=== PATIENT | male | born 1975 | race Two or more races ===

== ENCOUNTER 2024-04-15 05:47 | Observation (INO) | payer BC, SELFPAY ==
[2024-04-15] VITALS (9 sets, daily range): BP systolic 109–145; BP diastolic 64–103; BMI 25.7; BMI 24.7
--- NOTE | 2024-04-15 01:47 | ED.GENMED ---
History of Present Illness
General
Chief Complaint: Abdominal Pain
Source: patient
Exam Limitations: none
Time Seen by Provider: 04/15/24 01:39
History of Present Illness
History of Present Illness:
This is a 48 year old male that comes in with c/o upper abd pain. States that after dinner he started with upper abd pain. States that it also seems to be moving down into the abd a little. States that the pain has been constant. States that he
took his Pantoprazole and this normally helps but this time it did not. Denies any fever, chills, chest pain, SOB, diarrhea, headache, dizziness, urinary burning.
Past History
Past History
ED Past Medical History: GERD and Other (Ulcers)
ED Past Surgical History: None
Social History
Tobacco: Former smoker
Alcohol: Occasional
Personal:
Living: with family
Review of Systems
Review of Systems
All Other Systems: ROS reviewed and negative except as documented in HPI and ROS
Constitutional: Reports no symptoms; Denies fever or chills
EENT: Reports no symptoms
Respiratory: Reports no symptoms; Denies cough or trouble breathing
Cardiac: Reports no symptoms; Denies chest pain
ABD/GI: Reports abdominal pain (Upper abd), nausea and vomiting; Denies diarrhea
: Reports no symptoms; Denies dysuria, frequency or urgency
Musculoskeletal: Reports no symptoms
Skin: Reports no symptoms
Neurological: Reports no symptoms; Denies dizzy or headache
Psychiatric: Reports no symptoms
Phy Exam
General Physical Exam
General Presentation: moderate distress
General age: appears stated age
General Skin: warm and dry
General Habitus: normal
General Mental: alert
General Hydration: appears well hydrated
ENT Exam
ENT Exam: TM's normal, pharynx normal and neck supple
Eye Exam
Eye Exam: EOMI
Cardiovascular Exam
Cardiovascular Exam: regular rate/rhythm, no edema, no murmur and normal peripheral pulses
Pulmonary Exam
Pulmonary Exam: lungs clear, no respiratory distress, no rales, chest non tender, no crackles, no rhonchi, no wheezing and no cough
Gastrointestinal Exam
Gastrointestinal Exam: normal bowel sounds, soft, no organomegaly, no pulsatile mass, non distended and tender (Epigastric and RUQ tenderness with palpation)
Musculoskeletal Exam
Musculoskeletal Exam: full ROM and no edema
Skin Exam
Skin Exam: normal color, warm/dry, no rash and no petechia
Psychiatric Exam
Psychiatric Exam: normal mood/affect
Course
Orders/Labs/Results
Orders:
Orders
04/15/24 01:13
EKG [Electrocardiogram (*1)] Urgent
Reason for Study: Abdominal Pain
EKG- Treatment ONCE
04/15/24 01:46
0.9% Sodium Chloride 1000 ml [Nss] 1,000 ml IV BOLUS
HYDROmorphone [Dilaudid] 1 mg IV NOW STA
Ondansetron Injectable [Zofran] 4 mg IV NOW STA
US Abdomen Complete/Upper Urgent
Comment:
Reason For Exam: Epigastric and right upper abd pain
04/15/24 01:47
Pantoprazole [Protonix IV] 40 mg IV NOW STA
04/15/24 01:51
Complete Blood Count/With Diff Urgent
Comprehensive Metabolic Panel Urgent
Lipase Urgent
Abnormal Lab Results
04/15/24
01:51
MCV 75.3 L fL
(80.0-94.0)
MCH 26.0 L pg
(27.0-31.0)
MPV 11.4 H fL
(7.4-10.4)
Absolute Monos (auto) 0.7 H 10^3/uL
(0.1-0.6)
Chloride 109 H mmol/L
(98-107)
Carbon Dioxide 20 L mmol/L
(22-30)
Glucose 151 H mg/dl
(70-99)
ALT 67 H U/L
(0-50)
04/15/24 01:51
04/15/24 01:51
Anemia, Chloride very slightly elevated. Carbon dioxide low. Glucose nonfasting. ALT mildly elevated. Lipase normal at 117
Vital Signs
Initial and Last Documented VS:
Initial Vital Signs
Temp Pulse Resp BP Pulse Ox
98.3 F 79 16 145/103 100
04/15/24 01:10 04/15/24 01:10 04/15/24 01:10 04/15/24 01:10 04/15/24 01:10
Last Documented Vital Signs
Temp Pulse Resp BP Pulse Ox
98.3 F 72 14 115/69 99
04/15/24 01:10 04/15/24 04:02 04/15/24 04:02 04/15/24 03:00 04/15/24 04:02
MDM/Problems Addressed
Differential Diagnosis Includes:
Pancreatitis, Gallbladder disease, Gastritis
MDM/Problems Addressed:
This is a 48 year old male that comes in with c/o upper abd pain. States that this started after dinner and has continued. States that he took his Pantoprazole but this did not help.
Will get labs, US, medicate for pain and IV fluids
Back into see patient. Patient has been feeling much better after the Dilaudid. Explained that his US shows that there is a gallstone stuck in the neck of the gallbladder. there is thickening and pericholecystic free fluid. Will admit and given IV
antibiotics. Hospitalist notified.
Chronic conditions affecting care:
NA
Acute Exacerbation and/or Progression of Chronic Illness:
GERD
*Radiology
Radiology exam reviewed: radiology read reviewed (US- night hawk- Gallstone lodged in the gallbladder neck. Thickening and pericholecystic free fluid. These findings are suspicious for cholecystitis. however, negative Day's sign makes the
findings equivocal. Consisder HIDA scan of surgical consult. )
*Pulse Oximetry
Patient hypoxic: no
*EKG
Interpreted by ED Provider?: Yes
Heart Rate: 79
Rate: normal
Rhythm: sinus
[place]: normal axis
Interval: normal interval
QRS Pattern: normal QRS
Ischemia: no ischemia
*Processing Tech Interpretation
Rate: normal
Heart Rate: 76
Rhythm: sinus
*Critical Care Note
Total Time (30-74mins, 75-104mins- exclusive of procedures): Not Applicable
ED Attending Note
-
Portions of this chart may have been created with voice recognition software.� Occasional wrong word or��sound alike� substitutions may have occurred due to the inherent limitations of voice recognition software.
Discharge Plan
Departure
Patient Disposition: Admit
Date of Disposition: 04/15/24
Time of Disposition: 04:47
Admit to: Med/Surg
Presentation/result/management discussed w/ accepting MD/DO: Hospitalist
Patient with high blood pressure during this ER visit?: No
Condition: Good
Covid-19: Not Applicable
Discharge Problem:
Cholecystitis, acute with cholelithiasis
Referrals:
UNKNOWN - PT DOES,NOT KNOW [Family Provider] -
Interventions
Interventions:
*Risk Screen - Suicide Last Done: 04/15/24 01:10
*General Assessment Last Done: 04/15/24 01:10
*Neglect/Abuse Screening Last Done: 04/15/24 01:10
HV-Nxbdzz-Joxcyvrfqq Assessment Last Done: 04/15/24 01:45
Discharge Date and Time
Print Language: AZERI
[2024-04-15 01:59] LABS: % Basophils 0.8 % (0-2); % Eosinophils 3.5 % (0-6); % Immature Granulocytes 0.3 % (0-0.5); % Monocytes 6.8 % (1.7-9.3); % Neutrophils 57.6 % (42.2-75.2); Absolute Basophils 0.1 10^3/uL (0-0.2); Absolute Eosinophils 0.4 10^3/uL (0-0.7); Absolute Lymphocytes 3.1 10^3/uL (1.2-3.4); Absolute Monocytes 0.7 10^3/uL (0.1-0.6); Absolute Neutrophils 5.7 10^3/uL (1.4-6.5); Hematocrit 42.9 % (39.0-52.0); Hemoglobin 14.8 g/dL (13.0-18.0); Mean Corp Hgb Conc. 34.5 g/dL (33.0-37.0); Mean Corpuscular Volume 75.3 fL (80.0-94.0); Mean Platelet Volume 11.4 fL (7.4-10.4); Nucleated Red Blood Cells % 0 % (-); Platelet Count 273 10^3/uL (130-400); Red Cell Dist. Width 14.5 % (11.5-14.5); White Blood Cell Count 9.9 10^3/uL (4.8-10.8)
[2024-04-15] MEDS: ZOFRAN 4 MG IV (01:59)
[2024-04-15] MEDS: DILAUDID 1 MG IV (02:00)
[2024-04-15] MEDS: PROTONIX IV 40 MG IV ×2 (02:01→10:06)
[2024-04-15] MEDS: NSS 1000 IV ×2 (02:05→10:05)
[2024-04-15 02:17] LABS: ALT (SGPT) 67 U/L (0-50); AST (SGOT) 35 U/L (17-59); Albumin 4.8 g/dl (3.5-5.0); Alkaline Phosphatase 74 U/L (38-126); Blood Urea Nitrogen 20 mg/dl (9-20); Calcium 9.5 mg/dl (8.4-10.2); Carbon Dioxide 20 mmol/L (22-30); Chloride 109 mmol/L (98-107); Estimated Creatinine Clearance 93 ml/min; Glucose 151 mg/dl (70-99); Lipase 117 U/L (23-300); Potassium 3.9 mmol/L (3.5-5.1); Sodium 141 mmol/L (135-145); Total Bilirubin 0.6 mg/dl (0.2-1.3); Total Protein 7.4 g/dl (6.3-8.2); eGFR > 60.00
--- NOTE | 2024-04-15 04:54 | HPS.HSE ---
Family Physician
-
Family Physician: NOT KNOW UNKNOWN - PT DOES
Chief Complaint
-
abdominal oain
History of Present Illness
48M HX GERD seen at ER for evaluation of abdominal pain:
Acute upper abdominal pain
- pain free at the tome of my exam
- onset after dinner last night
- Initially upper abdomen then radiation down
- No relieved by PPI
- Denies any fever, chills
Medical History
Past Medical History
Past Medical History: Reports GERD
Past Surgical History: Reports None
Social History
Tobacco: Former Smoker
Alcohol: Occasional
Living: With Family
Family History
Family History: Not pertinent
Allergies / Home Medications
Allergies reflects when Allergies were last updated in [facility].
Home Medications with original date entered in [facility]
Allergy/Medication List:
Allergies
Allergy/AdvReac Type Severity Reaction Status Date / Time
No Known Allergies Allergy Unverified 04/15/24 01:09
If medication reconciliation has not been performed, why?: Medication List N/A
Review of Systems
-
Constitutional: Reports No Symptoms
EENT: Reports No Symptoms
Respiratory: Reports No Symptoms
Cardiac: Reports No Symptoms
Abdomen/GI: Reports Abdominal Pain
: Reports No Symptoms
Musculoskeletal: Reports No Symptoms
Skin: Reports No Symptoms
Neurological: Reports No Symptoms
Endocrine: Reports No Symptoms
Hematologic/Lymphatic: Reports No Symptoms
Psych: Reports No Symptoms
Physical Exam
Vital Signs
Vital Signs
Temp Pulse Resp BP Pulse Ox
98.3 F 80 14 120/72 100
04/15/24 01:10 04/15/24 04:41 04/15/24 04:02 04/15/24 04:41 04/15/24 04:41
Physical Exam
General: Well Developed, Well Nourished and No Apparent Distress
HEENT: NormoCephalic, Moist mucous membranes and Atraumatic
Respiratory: Clear
Cardiac: S1/S2 and Regular Rhythm; No Murmur or Rub
GI: Soft, Non Tender, Non Distended and Normal Bowel Sounds; No Organomegaly
Rectal: Deferred by Provider
Musculoskeletal: No Clubbing, No Cyanosis and No Edema
Skin: No Rash
Neuro: AO x 3 and Nonfocal/grossly intact
Psych: Calm
Laboratory Results
-
04/15/24 01:51
04/15/24 01:51
Laboratory Results
Total Bilirubin 0.6 mg/dl (0.2-1.3) 04/15/24 01:51
AST 35 U/L (17-59) 04/15/24 01:51
ALT 67 U/L (0-50) H 04/15/24 01:51
Alkaline Phosphatase 74 U/L (38-126) 04/15/24 01:51
Lipase 117 U/L (23-300) 04/15/24 01:51
Data Reviewed
-
Ultrasound: Report Reviewed by me
Lab Data: Labs Reviewed by me
Impression/Plan
-
Reviewed VS: afebrile and unremarkable
Data
nl WCC
Cl 109
CO2 20
nl Cr
BG 151
nl TB
ALT 67
nl Lipase
US Abdomen
GS lodged in the gallbladder neck
GBWT and pericholecystic free fluid
Suspicious for cholecystitis
NEG Day
NO prior hospitalist admission:
ASSESSMENT & PLAN
Acute upper abdominal pain suspect Biliary colic
GS lodged in the NoGB
GBWT and pericholecystic free fluid suspicious for cholecystitis
NEG Day
Afebrile, nl WCC, nl TB
- NPO and IVF
- PRN Analgesia
- Trend LFTs
- Observing off ABx
- GS consult - HIDA scan ?
HX GERD
DVT Px: SCD
Code: Full
Obs MS
[2024-04-15] MEDS: ZOSYN 50 IV (05:00)
--- NOTE | 2024-04-15 08:30 | PTCARENOTE ---
Pt arrived to rm 401-2 at this time from the ED. Pt AAOx3, denying any pain or N/V. Med/Surg admit. See shift assessment for further detail. Oriented pt and his to , reporting concerns, plan of care, medications etc- verbalized understanding.
Call brady within reach.
[2024-04-15 09:33] LABS: INR 1.06; PT 13.6 Sec (11.4-14.6)
[2024-04-15 09:34] LABS: APTT 28.2 Sec (23.4-35.0)
--- NOTE | 2024-04-15 09:51 | CON.GS ---
Medical History
-
Chief Complaint: abdominal pain
History of Present Illness:
Mr. Pena is a 48 yo male with a history of GERD/PUD who presents with epigastric abdominal pain which began shortly after eating dinner late last night. He has had pain like this in the past which has been relieved with a PPI. He took this
medication without much benefit. He developed nausea and vomiting as well with continued pain that night and presented to the ED for evaluation. He is currently pain free and without nausea. He feels a mild soreness to the epigastrium but is
non-tender with exam.
Past Medical History
Past Medical History: GERD (PUD)
Social History
Tobacco: Former Smoker
Alcohol: Occasional
Family History
Family History: Reviewed & Not Pertinent
Allergies / Home Medications
Allergy/AdvReac Type Severity Reaction Status Date / Time
No Known Allergies Allergy Unverified 04/15/24 01:09
Review of Systems
-
A 10 point review of systems was completed, and was negative except as per HPI.
Physical Exam
Vital Signs
Temp Pulse Resp BP Pulse Ox
98.0 F 76 18 115/80 92
04/15/24 08:32 04/15/24 08:32 04/15/24 08:32 04/15/24 08:32 04/15/24 08:32
04/14/24 04/15/24 04/16/24
06:59 06:59 06:59
Actual Weight 72.3 kg 69.456 kg
Body Mass Index (BMI) 24.7
Lab Results
04/15/24 01:51
04/15/24 01:51
WBC 9.9 10^3/uL (4.8-10.8) 04/15/24 01:51
Hgb 14.8 g/dL (13.0-18.0) 04/15/24 01:51
Hct 42.9 % (39.0-52.0) 04/15/24 01:51
Plt Count 273 10^3/uL (130-400) 04/15/24 01:51
Abs Immat Gran (auto) 0.0 10^3/uL (0-0.05) 04/15/24 01:51
Neutrophils % 57.6 % (42.2-75.2) 04/15/24 01:51
Physical Exam
General: Well Developed, Well Nourished, No Apparent Distress and Comfortable
HEENT: Normocephalic and Moist Mucous Membranes
Respiratory: Non Labored Respirations
GI: Soft, Non Tender and Non Distended
Skin: Warm and Dry
Neuro: Awake, Alert and AO x 3
Psych: Calm
Data Reviewed
-
Ultrasound: Image Personally Visualized and interpreted, Report Reviewed by me, Discussed with Physician and Discussed with Patient
Old Records: Reviewed
Assessment / Plan
-
48 yo male with h/o GERD/PUD who presented with acute onset of epigastric pain last night after dinner with n/v several hours later as well. PPI ineffective for pain relief at home causing him to present. Pain resolved since early this am. Nontender
on exam. US with cholelithiasis, stone in region of gallbladder neck (3-4mm) with mild thickening/surrounding fluid. Day's neg on exam and on US. No leukocytosis. LFT's wnl. AFVSS. Currently on ABX. Suspect biliary colic vs less likely
cholecystitis.
Patient will need eventual cholecystectomy. Timing TBD. Given absence of pain, normal labs and vitals, may be able to plan this on an elective and scheduled basis which would be ideal.
Plan:
Will do PO challenge this am with low fat diet. If pain recurs, will plan cholecystectomy this admission. If he does well with PO challenge, will d/c to home for OP follow up.
Continue abx
Analgesics if needed
SCD's for vte ppx
D/W hospitalist team. OK to place patient on surgery service
[2024-04-15] MEDS: NSS (PRESERVATIVE FREE) 10 ML IV (10:06)
[2024-04-15] MEDS: FLUSH (NSS) 1 FLUSH IV (10:08)
[2024-04-15] MEDS: CEFOTAN 1000 MG IV (10:10)
[2024-04-15] MEDS: STERILE WATER FOR INJECTION 10 ML IV (10:10)
--- NOTE | 2024-04-15 12:15 | PTCARENOTE ---
Pt tolerated low fat diet without any abdominal pain, no N/V. Made Claudia Chaney from surgery aware.
--- NOTE | 2024-04-15 14:10 | CM ---
Vamshi was admitted overnight with abdominal pain. Plan is for discharge today with plan for outpatient cholecystectomy.
No discharge planning needs identified.
Plan: Discharge to home with outpatient follow up.
--- NOTE | 2024-04-15 15:49 | W.DCSUMMARY ---
Discharge Summary
Discharge Data
Date of Admission: 04/15/24
Date of Discharge: 04/15/24
-
Pending Results: No
Hospital Course
48 yo male admitted with biliary colic and possible cholecystitis on US imaging although without leukocytosis or fevers. Pain resolved shortly after presentation without recurrence. Non-tender on exam and without recurrence of pain with PO
challenge. Discharged to home on short course of antibiotics with plan for outpatient surgery for cholecystectomy and surgical follow up.
Discharge Plan
-
Patient Disposition: Home (Routine Discharge)
Discharge Diagnosis/Procedures: Biliary colic
Condition: Good
Diet: Low Fat
Activity: No restrictions
Activity Restrictions/Additional Instructions:
Please follow up with general surgeon to schedule cholecystectomy; number listed below. If you have increased pain or worsening symptoms, please return for evaluation.
Referrals:
Demario Lake MD [Active] - in less than 1 week
Prescriptions:
New
amoxicillin-pot clavulanate 875-125 mg tablet
1 tab PO Q12 Qty: 10 0RF
Discharge Orders:
Discharge Patient (As Directed); Ordered 04/15/24
Ordered By: Claudia Chaney
Discharge Date and Time
Print Language: JAPANESE
== END 2024-04-15 15:59 | disposition home or self-care (01) ==
LOC: 4 EAST ACU 05:47
PROVIDERS: Clinical Nurse Specialist Family Health; Registered Nurse; ADMITTING PHYSICIAN Internal Medicine; ATTENDING PHYSICIAN Surgery; EMERGENCY PHYSICIAN Emergency Medicine
DX: K80.00 Calculus of gallbladder with acute cholecystitis without obstruction (principal); R10.9 Unspecified abdominal pain; K21.9 Gastro-esophageal reflux disease without esophagitis; D64.9 Anemia, unspecified; R11.2 Nausea with vomiting, unspecified; K76.0 Fatty (change of) liver, not elsewhere classified; Z87.891 Personal history of nicotine dependence; Z87.11 Personal history of peptic ulcer disease
CPT/HCPCS: 76700; 80053; 83690; 85025; 85610; 85730; 86850; 86900; 86901; 87040; 93005; 96361; 96365; 96375; 99285; G0378

== ENCOUNTER 2024-05-30 06:21 | Day surgery (SDC) | payer BC, SELFPAY ==
[2024-05-30] VITALS (16 sets, daily range): BP systolic 92–131; BP diastolic 62–92
[2024-05-30] MEDS: NORMOSOL-R 1000 IV (09:57)
[2024-05-30] MEDS: TYLENOL 1000 MG PO (09:57)
--- NOTE | 2024-05-30 10:00 | W.SUR.PREOP ---
Pre-Operative Surgical Note
-
I have examined this patient prior to the performance of the scheduled procedure.
The patient's condition is unchanged from the time of the current History and
Physical and the patient is able to undergo the scheduled procedure.
[2024-05-30] MEDS: DILAUDID 0.5 MG IV (12:21)
--- NOTE | 2024-05-30 12:25 | W.IMMPOSTOP ---
Surgical Immed Post Op Note
-
Primary Surgeon: Demario Lake MD
Assisting Surgeon: None
Pre-op Diagnosis: Biliary colic
Post-op Diagnosis: Chronic cholecystitis, fatty liver disease
Procedure Performed:
1. Laparoscopic cholecystectomy with cholangiogram
2. Liver biopsy
Anesthesia Type: General
Specimen / Cultures:
1. Gallbladder and contents
2. Liver biopsy
Estimated Blood Loss: 7 cc
Complications: None
Operative Findings: Chronically inflamed gallbladder with adhesions over the anterior surface of the gallbladder. Some adhesions to the anterior right upper abdominal wall which were lysed sharply. Critical view of safety obtained prior to
cholangiogram which demonstrated normal biliary anatomy and no distal filling defects. Duct ligated with 0 PDS Endoloop.
--- NOTE | 2024-05-30 12:26 | OR.RPT ---
Operative Report
Operative Report
Patient Name: Vamshi Pena
: 1975
Date of Operation: 05/30/2024
Preoperative Diagnosis: Symptomatic Cholelithiasis
Postoperative Diagnosis: Chronic cholecystitis, fatty liver disease
Procedure(s):
1. Laparoscopic Cholecystectomy with Cholangiogram
2. Liver biopsy
Surgeon(s):
Dr. Lake
Architectural Administrative Assistant(s):
None
Anesthesia: General
Estimated Blood Loss: 7 cc
Urine Output: None
Drains/Lines/Implants: None
Specimens:
1. Gallbladder and contents
2. Liver biopsy
HPI/Surgical Indications:
This is a 48-year-old male who presents with a history of postprandial right upper quadrant abdominal pain. Exam, labs and imaging are consistent with symptomatic cholelithiasis. Risks/Benefits/Alternatives were discussed at length, and the patient
agreed to proceed with surgery.
Operative Findings: Chronically inflamed gallbladder with adhesions over the anterior surface of the gallbladder. Some adhesions to the anterior right upper abdominal wall which were lysed sharply. Critical view of safety obtained prior to
cholangiogram which demonstrated normal biliary anatomy and no distal filling defects. Duct ligated with 0 PDS Endoloop.
Procedure Description:
The patient was brought to the Operating Room and placed in the supine position. IV antibiotics were infused and sequential compression devices were confirmed to be on. Following uneventful induction of general endotracheal anesthesia, an
orogastric tube was placed. The abdomen was prepped and draped in the usual sterile fashion. The abdomen was entered using an infraumbilical pen Juan technique with a 12 mm trochar. Pneumoperitoneum to 15 mmHg pressure was obtained without
difficulty and we confirmed that no injury had occurred during our entry. The patient was positioned in reverse trendelenberg and rotated with the right side up slightly. Three (3) 5mm trocars were then placed along the right subcostal margin. A
locking grasping forceps was placed on the fundus of the gallbladder where it was then retracted cephalad and to the right. Using appropriate grasping instruments, the peritoneum overlying the triangle of [place] was incised. The cystic
duct/gallbladder junction was identified, dissected circumferentially. The cystic artery was identified medially and was dissected circumferentially. A critical view was obtained. A clip was then placed on the cystic duct/gallbladder junction and
an intraoperative cholangiogram performed using fluoroscopy, which showed good flow of dye into the duodenum. There were no intra- or extrahepatic bile duct filling defects. The biliary anatomy appeared normal. Following completion of the
cholangiogram, the catheter was removed. Two clips were then placed proximally on the cystic duct and the duct divided. Two clips were placed proximally and one distally on the cystic artery, and the artery was divided. Remaining soft tissue
attachments of the gallbladder to the liver bed were then divided using electrocautery. There was some spillage of bile and sludge, but no spillage of stones. The gallbladder bed was inspected and excellent hemostasis was obtained. The
gallbladder was extracted through the 12 mm trocar site using an endocatch bag. The abdomen was again irrigated and excellent hemostasis was assured. All remaining trocars were then removed and the pneumoperitoneum was evacuated. The 12 mm trocar
site was closed using a figure of 8, 0 PDS. All trocar sites were closed at the skin level using 4-0 Monocryl followed by Dermabond. Overall, the patient tolerated the procedure well and was taken to the Recovery Room postoperatively in stable
condition.
I was the attending physician and performed the procedure with no assistance. I was present for all portions of the case
Demario Lake MD
[2024-05-30] MEDS: DILAUDID 0.25 MG IV (12:49)
== END 2024-05-30 14:45 | disposition home or self-care (01) ==
LOC: SDS 06:21
PROVIDERS: ATTENDING PHYSICIAN Surgery
DX: K80.64 Calculus of gallbladder and bile duct with chronic cholecystitis without obstruction (principal); K76.0 Fatty (change of) liver, not elsewhere classified
CPT/HCPCS: 47563; 47000; 88304; 88307; 74300; 76000; 88313

== ENCOUNTER → 2024-11-04 08:48 | Outpatient (REF) | payer BC, SELFPAY | LOC: RAD 08:48 | PROVIDERS: ATTENDING PHYSICIAN Otolaryngology Facial Plastic Surgery; FAMILY PHYSICIAN Family Medicine | DX: J33.0 Polyp of nasal cavity (principal); J34.2 Deviated nasal septum; J32.0 Chronic maxillary sinusitis | CPT/HCPCS: 70486 ==

== ENCOUNTER → 2024-12-22 16:28 | Outpatient (REF) | payer BC, SELFPAY | LOC: CLAB 16:28 | PROVIDERS: ATTENDING PHYSICIAN Otolaryngology Facial Plastic Surgery | DX: J34.2 Deviated nasal septum (principal) | CPT/HCPCS: 88304; 88311 ==